=== PATIENT | male | born 1950 | race Caucasian/White ===

== ENCOUNTER 2022-09-04 09:18 | Emergency (ER) | payer MEDICARE ==
[~2022-09-04] VITALS: Ht 182.9 cm; Wt 105.0 kg
[2022-09-04] VITALS (9 sets, daily range): BP systolic 137–222; BP diastolic 81–112
[2022-09-04] MEDS ORDERED: ASPIRIN81 MG PO (09:44)
[2022-09-04] MEDS ORDERED: LASIX 20 MG TAB20 MG PO (09:45)
[2022-09-04] MEDS ORDERED: OMEPRAZOLE DR10 MG PO (09:46)
[2022-09-04] MEDS ORDERED: LOSARTAN POTASS50 MG PO (09:46)
[2022-09-04] MEDS ORDERED: LOVASTATIN40 M1 PO (09:46)
[2022-09-04 09:54] LABS: HEMOGLOBIN 15.9 g/dl (14.0-18.0); IMMATURE GRANULOCYTES 0.3 % (0.0-5.0); MEAN CELL VOLUME 95.9 fL CALC (80.0-100.0); MEAN CORPUSCULAR HGB 32.4 pG CALC (26.0-32.0); MEAN CORPUSCULAR HGB CONC 33.8 g/dL CAL (32.0-36.0); NEUT# 4.58 thou/uL (1.82-7.42); RED BLOOD COUNT 4.9 mill/uL (4.70-6.10); RED CELL DISTRI WIDTH 13.1 % (11.5-15.5)
[2022-09-04 10:08] LABS: INTERNATIONAL NORMALIZED RATIO 0.9 RATIO (0.7-1.3); PROTHROMBIN TIME 9.4 SECONDS (9.0-12.5)
[2022-09-04 10:11] LABS: ALBUMIN 4.4 g/dL (3.2-5.0); ALKALINE PHOSPHATASE 78 u/l (38-126); ANION GAP 14 (6-22 (CALC)); BILIRUBIN, TOTAL 0.7 mg/dL (0.0-1.4); BUN 20 mg/dL (8-23); BUN/CREATININE RATIO 15 (12-20 (CALC)); CARBON DIOXIDE 26 mmol/l (22-30); CHLORIDE 105 mmol/l (95-108); CREATININE 1.3 mg/dL (0.7-1.3); GFR FOR AFR.AMER. > 60 ML/MIN (>=60 (CALC)); GFR OTHER RACES 55 ML/MIN (>=60 (CALC)); POTASSIUM 4.2 mmol/l (3.5-5.1); SGOT/AST 50 u/l (19-48); SODIUM 140 mmol/l (137-146); TOTAL PROTEIN 7.3 g/dL (6.3-8.2)
== END 2022-09-04 12:10 | disposition home or self-care (01) ==
LOC: EDBD 09:18 → ED 09:18
PROVIDERS: Family Medicine
DX: R04.0 Epistaxis (principal); I10 Essential (primary) hypertension; M10.9 Gout, unspecified; E78.00 Pure hypercholesterolemia, unspecified